=== PATIENT | female | born 1970 | race Caucasian/White ===

== ENCOUNTER 2022-03-25 00:19 | Day surgery (SDC) | payer BC, SELFPAY ==
[2022-03-13 13:04] VITALS: BMI 26.1
[2022-03-25 07:12] VITALS: BP 116/88; PULSE 92; RESP 16; TEMP 36.4; O2SAT 100; BMI 26.0
--- NOTE | 2022-03-25 07:22 | WPDANESEPPF ---
Anes - Initial Pre Proc Eval Procedure: Operation Date: 03/25/22 08:30 Proposed Procedures p Screening Colonoscopy - Alvarez Azul MD Date/Time: 03/25/22 07:22 Surgeon: Alvarez Azul MD Pre Op Diagnosis: neoplasm screening Patient Data Age: 51 Gender: F Height: 1.68 m Weight: 73.3 kg Last Vital Signs Temp 36.4 C L 03/25/22 07:12 Pulse 92 03/25/22 07:12 Resp 16 03/25/22 07:12 BP 116/88 03/25/22 07:12 Pulse Ox 100 03/25/22 07:12 O2 Del Method Room Air 03/25/22 07:12 Allergies Allergy/AdvReac Type Severity Reaction Status Date / Time No Known Allergies Allergy Verified 03/25/22 07:11 Home Medications Medication Instructions Recorded Confirmed Type levothyroxine 50 mcg tablet 50 mcg PO DAILY 03/22/19 03/25/22 History glycopyrrolate 1 mg tablet 1 mg PO DAILY 04/05/20 03/25/22 History cetirizine 10 mg tablet 10 mg PO HS 03/13/22 03/25/22 History omega-3s 800 mg-dha 186.67 mg-epa 1 cap PO DAILY 03/13/22 03/25/22 History 560 mg-fish-vit D3 8.33 mcg capsule (De3 Dry Eye [place] Benefits) phentermine 37.5 mg tablet 37.5 mg PO DAILY 03/13/22 03/25/22 History rosuvastatin 5 mg tablet 5 mg PO HS 03/13/22 03/25/22 History spironolactone 100 mg tablet 100 mg PO DAILY 03/13/22 03/25/22 History Patient hx anesthesia problems: none Family hx anesthesia problems: none Results Review: All pre-operative results and documents have been reviewed as part of the pre-operative evaluation. [facility] Past Medical History Medical History (Updated 03/25/22 @ 07:23 by John Nguyễn DO) Hyperlipidemia Thyroid disease Vaginal delivery Surgical History Surgical History History of breast augmentation [place] teeth removed Family History Family History Father Diabetes mellitus Family history of hypercholesterolemia Hypertension Grandparent Diabetes mellitus Carcinoma of colon Family history of malignant neoplasm of breast Family history of malignant neoplasm of esophagus Mother Family history of hypercholesterolemia Hypertension Family history of malignant neoplasm of breast in first degree relative Sibling Hypertension Social History Social History Smoking status: Never smoker Alcohol intake: current Drinks per week: 1 Substance use: never Substance use type: does not use Living arrangements: with family Spiritual care concerns: No Anes - Eval Final PreProcedure Day of Procedure 03/25/22 07:22 Patient weight: overweight Heart: regular rate and rhythm Lungs: clear to auscultation Airway: Mallampati scale class II Neurological: alert and oriented Last oral intake: >/= 8 hours ASA classification: II Emergent: no Anesthetic plan: proceed Anesthesia type and monitoring: general GIVS and standard monitoring Results Review: All pre-operative results and documents have been reviewed as part of the pre-operative evaluation. Informed Consent: The patient's anesthetic plan and its attendant risks and benefits were discussed with the patient/family/POA. Questions were solicited and answers provided to the satisfaction of the patient/family/POA.
[2022-03-25] MEDS: LACTATED RINGERS 1,000 ML 150 ML IV CONT (07:25)
--- NOTE | 2022-03-25 08:07 | PM.HPGS ---
History of Present Illness History of Present Illness Consent: Risks, benefits, and alternatives have been discussed and questions answered. Patient agrees to proceed with procedure. Chief complaint: neoplasm screening Narrative: Devi Garcia is a 51 year old female here for first screening colonoscopy Review of Systems Constitutional: Constitutional: Denies headache(s) and Denies weakness Eyes: Eyes: Denies blurry vision ENT: Reports Normal hearing present, Denies headache(s) and Denies neck pain Cardiovascular: Cardiovascular: Denies chest pain and Denies dyspnea Respiratory: Respiratory: Denies dyspnea Gastrointestinal: Gastrointestinal: Reports no additional gastrointestinal complaints Genitourinary: Genitourinary: Denies dysuria Musculoskeletal: Musculoskeletal: Denies neck pain Integumentary/Breasts: Skin/Breast: Denies dry skin Neurologic: Reports Normal hearing present, Denies headache(s) and Denies weakness Psychiatric: Psychiatric: Denies anxiety Endocrine: Endocrine: Denies change in body appearance Hematologic/Lymphatic: Hematologic/Lymphatic: Denies easy bleeding Allergic/Immunologic: Allergic/Immunologic: Denies urticaria PMFSH Past Medical History Medical History (Updated 03/25/22 @ 08:07 by Alvarez Azul MD) Colon cancer screening Hyperlipidemia Thyroid disease Vaginal delivery Surgical History Surgical History History of breast augmentation [place] teeth removed Family History Family History Father Diabetes mellitus Family history of hypercholesterolemia Hypertension Grandparent Diabetes mellitus Carcinoma of colon Family history of malignant neoplasm of breast Family history of malignant neoplasm of esophagus Mother Family history of hypercholesterolemia Hypertension Family history of malignant neoplasm of breast in first degree relative Sibling Hypertension Social History Social History Smoking status: Never smoker Alcohol intake: current Drinks per week: 1 Substance use: never Substance use type: does not use Living arrangements: with family Spiritual care concerns: No Meds Home Medications and Allergies Home Medications Medication Instructions Recorded Confirmed Type levothyroxine 50 mcg tablet 50 mcg PO DAILY 03/22/19 03/25/22 History glycopyrrolate 1 mg tablet 1 mg PO DAILY 04/05/20 03/25/22 History cetirizine 10 mg tablet 10 mg PO HS 03/13/22 03/25/22 History omega-3s 800 mg-dha 186.67 mg-epa 1 cap PO DAILY 03/13/22 03/25/22 History 560 mg-fish-vit D3 8.33 mcg capsule (De3 Dry Eye [place] Benefits) phentermine 37.5 mg tablet 37.5 mg PO DAILY 03/13/22 03/25/22 History rosuvastatin 5 mg tablet 5 mg PO HS 03/13/22 03/25/22 History spironolactone 100 mg tablet 100 mg PO DAILY 03/13/22 03/25/22 History Allergies Allergy/AdvReac Type Severity Reaction Status Date / Time No Known Allergies Allergy Verified 03/25/22 07:11 Vital Signs Vital Signs - 24 hr 03/25/22 07:12 Temperature 97.5 F L Pulse Rate 92 Respiratory Rate 16 Blood Pressure 116/88 Pulse Oximetry 100 Oxygen Delivery Room Air Exam Const: General: comfortable and no acute distress HENMT: Face/Nose/Sinus: Normal nares present Eyes: General: appearance normal, both eyes and all related structures Neck: Neck: no JVD Resp: Auscultation: clear to auscultation bilaterally Cardio: Rate: regular rate Rhythm: regular rhythm GI: Inspection: non-distended GI Palp: Yes Soft to palpation Skin: General skin exam: normal color Neuro: General: gait normal Speech: normal speech Extrem: General: normal to inspection Psych: Mental Status: mental status grossly normal Assessment and Plan Assessment and plan (1) Colon cancer screening:
[2022-03-25 08:22] VITALS: BP 100/76; PULSE 86; RESP 20; O2SAT 100
[2022-03-25 08:32] VITALS: BP 102/61; PULSE 84; RESP 22; O2SAT 98
[2022-03-25 08:42] VITALS: BP 122/64; PULSE 82; RESP 20; O2SAT 99
== END 2022-03-25 08:47 | disposition home or self-care (01) ==
PROVIDERS: PCP Family Medicine; Visit Provider Internal Medicine Gastroenterology
PROC: 0DJD8ZZ Inspection of Lower Intestinal Tract, Via Natural or Artificial Opening Endoscopic (ICD-10-PCS; CPT 45378; principal; 2022-03-25 08:30)
DX: Z12.11 Encounter for screening for malignant neoplasm of colon (principal); K57.30 Diverticulosis of large intestine without perforation or abscess without bleeding; E78.5 Hyperlipidemia, unspecified; E07.9 Disorder of thyroid, unspecified
CPT/HCPCS: 45378; J2704; J7120